=== PATIENT | male | born 1985 | race Caucasian/White ===

== ENCOUNTER 2017-10-01 23:02 | Emergency (ER) | payer OTHER, MEDICAID ==
[~2017-10-01] VITALS: Ht 190.5 cm; Wt 94.3 kg
[~2017-10-01 23:02] MED LIST: AFRIN15 ML NS; AMOXICILLIN 50500 MG PO; BACTRIM DS TAB1 EACH PO; CEFDINIR300 MG PO; CIPRODEX OTIC7.5 ML OTIC; CLONAZEPAM 1 MG1 M1 PO; HYDROCODON-ACE1 EAC7 PO; HYDROCODONE-AP1 EAC6 PO; IBUPROFEN 800800 M1 PO; ULTRAM50 MG PO; ZPAK PO
[2017-10-01] MEDS ORDERED: PENICILLIN VK500 MG PO (23:27)
[2017-10-01] MEDS ORDERED: NORCO 5-325 TA1 EAC1 PO (23:27)
[2017-10-01 23:54] VITALS: BP 177/75
== END 2017-10-01 23:55 | disposition home or self-care (01) ==
LOC: M.ERS 23:02
DX: K02.9 Dental caries, unspecified (principal); F17.210 Nicotine dependence, cigarettes, uncomplicated; Z88.5 Allergy status to narcotic agent

== ENCOUNTER 2018-05-24 18:47 | Emergency (ER) | payer MEDICAID ==
[~2018-05-24] VITALS: Ht 190.5 cm; Wt 104.3 kg
[~2018-05-24 18:47] MED LIST changes: +NORCO 5-325 TA1 EAC1 PO; +PENICILLIN VK500 MG PO
[2018-05-24] MEDS ORDERED: DOXYCYCLINE MO100 M1 PO (19:50)
[2018-05-24 20:11] VITALS: BP 149/87
== END 2018-05-24 20:11 | disposition home or self-care (01) ==
LOC: M.ERS 18:47
DX: L02.612 Cutaneous abscess of left foot (principal); F17.210 Nicotine dependence, cigarettes, uncomplicated; Z88.5 Allergy status to narcotic agent; Z88.2 Allergy status to sulfonamides; Z88.1 Allergy status to other antibiotic agents